=== PATIENT | male | born 1960 | race Two or more races ===

== ENCOUNTER 2020-11-27 08:13 | Emergency (ER) | payer SELFPAY ==
[~2020-11-27] VITALS: Ht 188 cm; Wt 88.5 kg
[2020-11-27 08:13] VITALS: BP 133/93
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
--- NOTE | 2020-11-27 09:54 | NUR ---
Patient given discharge instructions and they have confirmed that they understand the instructions. Patient ambulatory with steady gait.
== END 2020-11-27 09:55 | disposition home or self-care (01) ==
LOC: ED 09:32
DX: F10.120 Alcohol abuse with intoxication, uncomplicated (principal); F17.210 Nicotine dependence, cigarettes, uncomplicated; Y90.9 Presence of alcohol in blood, level not specified
CPT/HCPCS: 99283